=== PATIENT | female | born 1950 | race Caucasian/White ===

== ENCOUNTER → 2021-01-26 | Outpatient (CLI) | payer MEDICARE ==
[~2021-01-26] MED LIST: DIATRIZOATE MEGL/DIATRIZOA SOD 30 ML BTL PO ONE; IOPAMIDOL 370 MG/ML 200 ML INFUS..BTL INJ ONE; SODIUM CHLORIDE 0.9% 100 ML ONE
[2021-01-26 12:22] LABS: CREATININE, SERUM 0.79 mg/dL (0.57-1.11)
== END ==
LOC: CT 11:16
PROVIDERS: ATTEND Surgery
DX: M79.605 Pain in left leg (principal); M79.604 Pain in right leg
CPT/HCPCS: 36415; 75635; 82565; 84520; J7050; Q9967

== ENCOUNTER 2021-02-16 07:27 | Day surgery (SDC) | payer MEDICARE ==
[2021-02-13 12:59] LABS: BASOPHILS # (AUTO) 0.1 (0.0-0.1); BASOPHILS % 0.6 % (0.0-1.0); EOSINOPHILS # (AUTO) 0.3 (0.0-0.4); EOSINOPHILS % 2.9 % (0.0-6.0); LYMPHOCYTES # (AUTO) 2.1 (1.0-3.2); LYMPHOCYTES % 23.3 % (18.0-39.1); MEAN CORPUSCULAR HEMOGLOBIN 29.4 pg (28-32); MEAN CORPUSCULAR HGB CONC 32.5 g/dL (31-35); MEAN CORPUSCULAR VOLUME 90.5 fL (81-99); MONOCYTES # (AUTO) 0.6 (0.2-0.8); PLATELET COUNT 304 x10e3/uL (140-360); RED BLOOD COUNT 4.42 x10e6/uL (3.6-5.1); RED CELL DISTRIBUTION WIDTH 14.4 % (11.7-14.4)
[2021-02-13 13:36] LABS: INR 0.9; PROTHROMBIN TIME 12.9 seconds (11.9-14.5)
[2021-02-13 13:59] LABS: ALBUMIN 3.5 g/dL (3.5-5.0); ANION GAP 13.5 mmol/L (8-16); CALCIUM 9.2 mg/dL (8.4-10.2); CHOL/HDL RATIO 3.3 (3.0-3.6); CREATININE, SERUM 0.75 mg/dL (0.57-1.11); POTASSIUM 3.5 mmol/L (3.5-5.1)
[~2021-02-16] VITALS: Ht 147.3 cm; Wt 65.8 kg
[2021-02-16] VITALS (15 sets, daily range): BP systolic 100–131; BP diastolic 47–69
[2021-02-16] MEDS ORDERED: CLOPIDOGREL75 MG PO (07:47)
[2021-02-16] MEDS ORDERED: NAPROSYN500 MG PO (07:47)
[2021-02-16] MEDS ORDERED: NEURONTIN300 MG PO (07:47)
[2021-02-16] MEDS ORDERED: ENALAPRIL-HCTZ1 EACH PO (07:47)
[2021-02-16] MEDS ORDERED: FENTANYL CITRATE/PF 100MCG/2 ML INJ ONE ×4 (10:23→17:10)
[2021-02-16] MEDS ORDERED: MIDAZOLAM HCL 2 MG/2 ML VIAL ONE ×6 (10:23→17:37)
[2021-02-16] MEDS ORDERED: HEPARIN SOD/SOD CHLORIDE 2,000 ML ONE ×2 (10:23→15:23)
[2021-02-16] MEDS ORDERED: SODIUM CHLORIDE 0.9% 1000ML 1,000 ML ONE ×3 (10:23→16:01)
[2021-02-16] MEDS ORDERED: LIDOCAINE HCL 2% LOCAL 20 ML VIAL ONE ×2 (10:23→15:23)
[2021-02-16] MEDS ORDERED: IOPAMIDOL 300MG/ML 100 ML INFUS..BTL IV ONE ×2 (10:23→15:24)
[2021-02-16] MEDS ORDERED: VERAPAMIL HCL 2.5 MG/ML 2 ML VIAL ONE (11:11)
[2021-02-16] MEDS ORDERED: DIPHENHYDRAMINE HCL INJ 50 MG/ML VIAL ONE ×2 (11:13→17:09)
[2021-02-16] MEDS ORDERED: CLOPIDOGREL BISULFATE 75 MG TAB ONE (11:54)
[2021-02-16] MEDS ORDERED: ASPIRIN 325 MG TAB ONE (11:54)
[2021-02-16] MEDS ORDERED: HEPARIN SOD (PORCINE) 1000 UNIT/ML 30ML ONE (15:23)
[2021-02-16] MEDS ORDERED: Morphine 4mg Syringe 4 MG/ML INJ ONE (16:06)
== END 2021-02-16 21:44 | disposition short-term general hospital (02) ==
LOC: CATH LAB 07:27
PROVIDERS: ATTEND Internal Medicine Cardiovascular Disease
DX: I70.213 Atherosclerosis of native arteries of extremities with intermittent claudication, bilateral legs (principal); I77.77 Dissection of artery of lower extremity; I71.4 Abdominal aortic aneurysm, without rupture; Z01.812 Encounter for preprocedural laboratory examination; Z20.822 Contact with and (suspected) exposure to COVID-19
CPT/HCPCS: 36415; 37224; 37225; 75625; 76937; 80053; 80061; 85025; 85610; C1724; C1725 ×3; C1766; C1769 ×5; C1887 ×2; C2623; J1200; J1644; J2001; J2250; J2270; J3010; J7030; Q9967; U0002; 36247; 37228; 37229; 75716; 99152; 99153